=== PATIENT | female | born 1980 | race Caucasian/White ===

== ENCOUNTER 2019-10-25 08:45 | Inpatient (IN) | payer OTHER ==
[2019-10-25] MEDS ORDERED: BICITRA ORAL LIQD 30ML PO NR (11:00)
[2019-10-25] MEDS ORDERED: OXYTOCIN 20 UNIT/1000ML DRIP 20 UNITS/1,000 ML BAG IV SCH ×3 (11:00→18:00)
[2019-10-25] MEDS ORDERED: METOCLOPRAMIDE 10 MG/2 ML INJ IV NR (11:00)
[2019-10-25] MEDS ORDERED: ceFAZolin/Water 2 GM/20 ML 2 GM/20 ML SYRINGE IV NR ×2 (11:00→14:00)
[2019-10-25] MEDS ORDERED: FAMOTIDINE 20 MG/2 ML INJ IV NR (11:00)
[2019-10-25 11:28] LABS: Basophils # (Auto) 0.1 K/mm3 (0.0-0.1); Basophils % (Auto) 0.7 % (0.0-1.8); Eosinophils # (Auto) 0.1 K/mm3 (0.0-0.4); Hemoglobin 12.8 gm/dl (10.1-14.3); Lymphocytes # (Auto) 1.5 K/mm3 (1.2-5.4); Lymphocytes % (Auto) 20.9 % (13.4-35.0); Mean Corpuscular HGB Conc 34 % (30-34); Mean Corpuscular Volume 92 fl (79-97); Monocytes # (Auto) 0.5 K/mm3 (0.0-0.8); Monocytes % (Auto) 6.6 % (0.0-7.3); Platelet Count 249 K/mm3 (140-440); Red Blood Count 4.13 M/mm3 (3.65-5.03); Red Cell Distribution Width 13.7 % (13.2-15.2)
[2019-10-25] MEDS: LACTATED RINGERS 1,000 ML IV SCH ×2 (11:47→19:36)
--- NOTE | 2019-10-25 12:43 | History and Physical Report ---
History of Present Illness Date of examination: 10/25/19 Date of admission: 10/25/2019 Chief complaint: Noemy q2mins and bleeding from the vagina at38+5 wks gestation. History of present illness: Multipara. EDC 11/03/2019 was assessed with a large fetus in the office and elected for a delivery. she also wanted a tubal sterilization. Past History - Obstetrical History Expected Date of Delivery: 11/03/19 Actual Gestation: 38 Week(s) 5 Day(s) : 5 Medications and Allergies Allergies Allergy/AdvReac Type Severity Reaction Status Date / Time No Known Allergies Allergy Unverified 05/28/14 17:08 Home Medications Medication Instructions Recorded Confirmed Last Taken Type Vit-Fe Fumar-FA [ 1 each PO QDAY 05/29/14 05/29/14 05/27/14 History Vitamin] 1 HYDROcodone/APAP 5-325 [[place] 1 - 2 each PO Q4HR PRN #30 tablet 10/25/19 Unknown Rx 5/325] Active Meds: Active Medications Citric Acid/Sodium Citrate (Bicitra) 30 ml PO ONCE NR Stop: 10/25/19 16:00 Famotidine (Pepcid) 20 mg IV ONCE NR Stop: 10/25/19 16:00 Oxytocin/Sodium Chloride (Pitocin/Ns 20 Unit/1000ml Drip) 20 units in 1,000 mls @ 0 mls/hr IV TITR BRIE Lactated Ringer's (Lactated Ringers) 1,000 mls @ 2,250 mls/hr IV PREOP BRIE Stop: 10/26/19 11:27 Last Admin: 10/25/19 11:47 Dose: 2,250 mls/hr Documented by: Cefazolin Sodium (Ancef/Sterile Water 2 Gm/20 Ml) 2 gm in 20 mls @ 80 mls/hr IV PREOP NR; Protocol Stop: 10/25/19 16:00 Metoclopramide HCl (Reglan) 10 mg IV ONCE NR Stop: 10/25/19 16:00 Review of Systems All systems: negative - Vital Signs Vital signs: Vital Signs Pulse BP 60 132/87 10/25/19 09:46 10/25/19 09:46 Temp Pulse Resp BP Pulse Ox 100.3 F H 66 18 133/87 99 10/25/19 10:15 10/25/19 12:24 10/25/19 10:15 10/25/19 10:16 10/25/19 12:24 - Physical Exam Lungs: Positive: Normal air movement Abdomen: Positive: distention. Negative: tenderness - Obstetrical FHR: category 1 Uterine Contraction Pattern: Regular Results Result Diagrams: 10/25/19 11:02 Abnormal lab results 10/25/19 Range/Units 11:02 Seg Neutrophils % 70.8 H (40.0-70.0) % All other labs normal. Assessment and Plan - Patient Problems (1) Macrosomia affecting management of mother in third trimester, single gestation Current Visit: Yes Status: Acute (2) Active labor at term Current Visit: No Status: Acute (3) Insufficient care Current Visit: No Status: Acute (4) Macrosomia Current Visit: Yes Status: Acute Plan to address problem: Patient was counseled about accuracy of US estimation of weight and potential for overestimation. All risks associated with section were disclosed. All her questions were answered and she gave her consent for delivery.
[2019-10-25] MEDS ORDERED: BICITRA ORAL LIQD 30ML PO ONE (13:57)
[2019-10-25] MEDS ORDERED: LACTATED RINGERS 1,000 ML IV SCH (14:00)
--- NOTE | 2019-10-25 15:24 | Anesthesia Consultation ---
Anesthesia Consult and Med Hx Date of service: 10/25/19 - Airway Anesthetic Teeth Evaluation: Good ROM Head & Neck: Adequate Mental/Hyoid Distance: Adequate Mallampati Class: Class II Intubation Access Assessment: Good - Pulmonary Exam CTA: Yes - Cardiac Exam Cardiac Exam: RRR - Pre-Operative Health Status ASA Pre-Surgery Classification: ASA2 Proposed Anesthetic Plan: Spinal - Pulmonary Hx Asthma: No COPD: No Hx Pneumonia: No - Cardiovascular System Hx Hypertension: No - Central Nervous System Hx Seizures: No Hx Psychiatric Problems: No - Endocrine Hx Renal Disease: No Hx End Stage Renal Disease: No Hx Hypothyroidism: No Hx Hyperthyroidism: No - Hematic Hx Anemia: No Hx Sickle Cell Disease: No - Other Systems Hx Alcohol Use: No
[2019-10-25] MEDS ORDERED: PROMETHAZINE 25 MG RECT SUPP PR PRN (15:25)
[2019-10-25] MEDS ORDERED: HYDROmorphone 1 MG/1 ML INJ IV PRN ×2 (15:25)
[2019-10-25] MEDS ORDERED: ONDANSETRON 4 MG/2 ML INJ IV PRN ×2 (15:25→17:34)
[2019-10-25] MEDS ORDERED: NALOXONE 0.4 MG/1 ML INJ IV PRN ×2 (15:25→17:34)
[2019-10-25] MEDS ORDERED: PROMETHAZINE 25 MG TAB PO PRN (15:25)
--- NOTE | 2019-10-25 15:25 | Anesthesia Day of Surgery ---
Anesthesia Day of Surgery - Day of Surgery Patient Examined: Yes Patient H&P Reviewed: Yes Patient is NPO: Yes
[2019-10-25] MEDS ORDERED: GLYCOPYRROLATE 0.4 MG/2 ML INJ ONE (16:24)
[2019-10-25] MEDS ORDERED: ePHEDrine SULFATE 50 MG/1 ML INJ ONE (16:27)
[2019-10-25] MEDS ORDERED: SODIUM CHLORIDE 0.9% IRR 1,500 ML BOTTLE IR ONE (16:40)
[2019-10-25] MEDS ORDERED: WATER FOR IRRIG STERILE 1,500 ML BOTTLE IR ONE (16:40)
[2019-10-25] MEDS ORDERED: DEXMEDETOMIDINE 200 MCG/2 ML VIAL IV ONE (16:58)
[2019-10-25] MEDS ORDERED: KETOROLAC 30 MG/1 ML INJ ONE (16:58)
[2019-10-25] MEDS ORDERED: ONDANSETRON 4 MG/2 ML INJ ONE (16:58)
[2019-10-25] MEDS ORDERED: HYDROcodone/ACETAMINOPHEN 5-325 MG TAB PO PRN (17:34)
[2019-10-25] MEDS ORDERED: KETOROLAC 30 MG/1 ML INJ IV PRN (17:34)
[2019-10-25] MEDS ORDERED: LANOLIN/ZINC/DIMETHICONE (LANSINOH) 7 GM TP PRN (17:34)
[2019-10-25] MEDS ORDERED: WITCH HAZEL/ GLYCERIN PAD TP PRN (17:34)
[2019-10-25] MEDS ORDERED: MORPHINE 4 MG/1 ML INJ IV PRN (17:34)
--- NOTE | 2019-10-25 17:42 | Operative Report ---
Operative Report Operative Report: Date of surgery: 10/25/2019 Preoperative diagnoses: Term , gestational diabetes and macrosomia Postoperative diagnoses: The same. Operation: Lower segment transverse delivery Surgeon:Lion Plaza MD Manager Safe: Missy Beltran CRNA Anesthesia: Spinal block Estimated blood loss: 1000 mL Complications: None Findings: There was a live baby boy with a loose nuchal cord in February of meconium-stained amniotic fluid. Baby was in cephalic presentation. weight 8 lbs. 14 oz. with Apgars 8/9. Both ovaries and fallopian tubes were grossly normal. The uterus was an unremarkable gravid structure. Procedure in detail: The patient was taken to the operating room and given a spinal block. Patient was placed in the straight supine position and a Coronel catheter was inserted. The patient was prepped in the abdomen. The drapes were placed. A timeout was done. With the go ahead from the solid waste landfill technician, a Pfannenstiel incision was made. This incision was carried across the subcutaneous layer to the fascia which was also divided transversely. The recti abdominis muscle flaps were stripped from the fascia using a combination of blunt and sharp dissections. The muscles were in the midline to gain access to the anterior parietal peritoneum whi ch was divided after excluding any underlying viscera. The access to the peritoneal cavity was then widened by manual stretching. The bladder blade was applied. The utero vesicle peritoneal flap was divided transversely allowing the bladder to be displaced caudally. The uterine incision was placed in the lower segment transversely. The uterine incision was carried to the decidual layer. The uterine incision was extended on both sides using the bandage scissors. The amniotic sac was ruptured with clear fluid. The head was lifted out of the false maternal pelvis and delivered through the incision using fundal pressure. The airways were bulb suctioned beginning with the mouth. Continuing fundal pressure combined with traction on the mandibular processes of the jaw delivered the rest of the baby. The umbilical cord was double clamped and divided. The baby was carefully transferred to the pediatric team. The placenta was manually removed from the uterine cavity. The uterine cavity was explored and was empty of any placental remnants. The uterine incision was repaired in 2 layers with #1 Vicryl. The surgical line on the uterus was hemostatic. Blood and clots were cleared from the peritoneal cavity. The anterior parietal peritoneum was repaired with #1 Vicryl. The fascia was repaired with #1 Vicryl. The subcutaneous layer was made hemostatic using the B ovie before the skin was closed subcuticularly with 4-0 Vicryl. There were no complications. The estimated blood loss was 1000 mL. All sponges and instrument counts were correct. Patient was safely transferred to the recovery room.
--- NOTE | 2019-10-25 17:48 | Post Anesthesia Evaluation ---
- Post Anesthesia Evaluation Patient Participated: Yes Airway Patent: Yes Stable Respiratory Function: Yes Nausea/Vomiting: Yes Temp > 96.8F: Yes Pain Manageable: Yes Adequeate Hydration: Yes Anesthesia Complications: No Block Receding Appropriately: Yes Patient on Ventilator: No
[2019-10-25] MEDS: ceFAZolin/NS 1 GM/50 ML 1 GM/50 ML BAG IV SCH (22:30)
[2019-10-25] MEDS: D5W/LACTATED RINGERS 1,000 ML IV SCH (23:29)
[2019-10-26 05:24] LABS: Hemoglobin 9.7 gm/dl (10.1-14.3)
[2019-10-26] MEDS: ceFAZolin/NS 1 GM/50 ML 1 GM/50 ML BAG IV SCH (05:58)
[2019-10-26] MEDS: D5W/LACTATED RINGERS 1,000 ML IV SCH (06:00)
[2019-10-26] MEDS ORDERED: FERROUS SULFATE 325 MG TAB PO SCH (10:00)
[2019-10-26] MEDS ORDERED: HYDROcodone/ACETAMINOPHEN 5-325 MG TAB PO PRN ×2 (11:03→17:48)
[2019-10-26] MEDS: PRENATAL VIT27-FE FUMARATE-FOLIC ACID VIT TAB PO SCH (11:22)
[2019-10-26] MEDS: HYDROcodone/ACETAMINOPHEN 5-325 MG TAB PO PRN ×2 (11:22→17:52)
[2019-10-26] MEDS: FERROUS SULFATE 325 MG TAB PO SCH ×2 (11:22→22:48)
--- NOTE | 2019-10-26 12:13 | Progress Note ---
Assessment and Plan A: POD #1 Asymptomatic Anemia GDM A1 P: Follow Routine PostOp Orders FeSO4 325mg PO BID Encouraged increased ambulation Subjective - Subjective Date of service: 10/26/19 Patient reports: appetite normal, voiding normally, pain well controlled, ambulating normally : doing well, bottle feeding (and ) Objective - Vital Signs Latest vital signs: Vital Signs Temp Pulse Resp BP BP Pulse Ox 10/26/19 08:16 98.1 F 70 18 109/73 10/26/19 04:00 98.7 F 77 18 103/67 10/26/19 00:00 98.6 F 74 16 122/69 10/25/19 20:04 62 106/62 100 10/25/19 18:45 97.8 F 64 15 112/59 100 10/25/19 18:30 60 11 L 105/61 100 10/25/19 18:15 64 19 92/49 99 10/25/19 18:05 62 14 99/61 99 10/25/19 18:00 60 13 98/58 99 10/25/19 17:55 97.6 F 64 13 105/57 99 10/25/19 15:59 72 99 10/25/19 15:54 67 99 10/25/19 15:49 64 99 10/25/19 15:44 70 97 10/25/19 15:39 67 96 10/25/19 15:36 65 91 10/25/19 15:34 65 100 10/25/19 15:30 65 87 10/25/19 15:29 63 100 10/25/19 15:24 70 98 10/25/19 15:19 69 98 10/25/19 15:14 77 96 10/25/19 15:09 72 97 10/25/19 15:04 63 100 10/25/19 14:59 63 100 10/25/19 14:54 71 100 10/25/19 14:49 63 99 10/25/19 14:44 66 100 10/25/19 14:39 71 100 10/25/19 14:34 68 98 10/25/19 14:29 71 100 10/25/19 14:24 66 100 10/25/19 14:19 77 100 10/25/19 14:14 64 100 10/25/19 14:09 72 98 10/25/19 14:04 64 98 10/25/19 13:59 69 100 10/25/19 13:54 65 98 10/25/19 13:49 68 99 10/25/19 13:44 71 98 10/25/19 13:39 66 96 10/25/19 13:34 78 100 10/25/19 13:29 63 97 10/25/19 13:24 77 98 10/25/19 13:19 68 100 10/25/19 13:14 67 100 10/25/19 13:09 70 97 10/25/19 13:04 67 98 10/25/19 12:59 67 100 10/25/19 12:54 62 100 10/25/19 12:49 70 100 10/25/19 12:44 62 100 10/25/19 12:39 66 100 10/25/19 12:34 76 92 10/25/19 12:29 66 100 10/25/19 12:24 66 99 10/25/19 12:19 74 98 10/25/19 12:14 63 99 10/25/19 12:09 74 98 Intake and Output 10/25/19 10/26/19 10/26/19 22:59 06:59 14:59 Intake Total 2400 864.583 480 Output Total 200 600 Balance 2200 264.583 480 Intake: IV 2400 864.583 ANCEF/NS 1 GM/50 ML 1 gm 50 In 50 ml @ 100 mls/hr IV Q8H BRIE Rx#:[id number] D5lr 1,000 ml @ 125 mls/ 814.583 hr IV DIRECT BRIE Rx#: [id number] Oral 480 Output: Urine 200 600 Indwelling Catheter 600 Uretheral (Coronel) 100 Other: Total, Intake Amount 480 Total, Output Amount 600 # Voids Indwelling Catheter 1 Estimated Blood Loss 1,000 - Exam Breasts: Present: normal Cardiovascular: Present: Regular rate Lungs: Present: Clear to auscultation, Normal air movement Abdomen: Present: normal appearance, soft, normal bowel sounds Uterus: Present: normal, firm, fundal height below umbilicus Extremities: Present: normal Incision: Present: normal, intact, dressed - Labs Labs: Abnormal lab results 10/26/19 Range/Units 05:01 Hgb 9.7 L D (10.1-14.3) gm/dl Hct 29.0 L D (30.3-42.9) %
[2019-10-26] MEDS: IBUPROFEN 800 MG TAB PO PRN (22:48)
[2019-10-27] MEDS: HYDROcodone/ACETAMINOPHEN 5-325 MG TAB PO PRN ×2 (01:28→10:16)
[2019-10-27] MEDS: IBUPROFEN 800 MG TAB PO PRN (06:03)
[2019-10-27] MEDS: PRENATAL VIT27-FE FUMARATE-FOLIC ACID VIT TAB PO SCH (09:43)
[2019-10-27] MEDS: FERROUS SULFATE 325 MG TAB PO SCH (09:43)
--- NOTE | 2019-10-27 15:57 | Progress Note ---
Assessment and Plan A: POD#2 s/p Repeat c/s Asymptomatic Anemia GDM A1 P: Follow Routine PostOp Orders FeSO4 325mg PO BID Encouraged increased ambulation Discharge home this Pm pending peds Subjective - Subjective Date of service: 10/27/19 Principal diagnosis: POD#2 s/p repeat c/s Interval history: See H&P and delivery note Patient reports: appetite normal, voiding normally, pain well controlled, flatus, ambulating normally : doing well, other (breast/bottle) Objective - Vital Signs Latest vital signs: Vital Signs Temp Pulse Resp BP BP Pulse Ox 10/27/19 08:56 98.8 F 75 16 115/70 100 10/27/19 07:03 18 10/27/19 06:03 18 10/27/19 02:28 18 10/27/19 01:28 18 10/27/19 00:46 98.1 F 77 24 111/59 98 10/26/19 23:48 18 10/26/19 22:48 18 10/26/19 16:51 98.0 F 75 18 120/73 Intake and Output 10/26/19 10/27/19 10/27/19 23:59 07:59 15:59 Intake Total 480 480 Balance 480 480 Intake: Oral 480 480 Other: Total, Intake Amount 480 480 # Voids Indwelling Catheter 2 - Exam Breasts: Present: normal, Cardiovascular: Present: Regular rate, Normal S1, Normal S2, No murmurs Lungs: Present: Clear to auscultation, Normal air movement Abdomen: Present: normal appearance, soft, tenderness (as expected post-op), n ormal bowel sounds. Absent: distention Vulva: both: normal Uterus: Present: firm, fundal height at umbilicus Extremities: Present: normal Deep Tendon Reflex Grade: Normal +2 Incision: Present: normal, dry, intact, dressed (CDI)
--- NOTE | 2019-10-27 15:59 | Discharge Summary ---
Providers - Providers Date of Admission: 10/25/19 08:46 Date of discharge: 10/27/19 Attending physician: JANE ROJAS MD Primary care physician: JANE ROJAS MD Hospitalization Reason for admission: IUP at term Delivery: Procedure: repeat low transverse Procedure details: See H&P and operative note Incision: normal, dry, intact (CDI) Other procedures: none complications: none Discharge diagnosis: IUP at term delivered baby: male Condition at discharge: Good Disposition: DC-01 TO HOME OR SELFCARE Plan - Discharge Medications Prescriptions: HYDROcodone/APAP 5-325 [[place] 5/325] 1 - 2 each PO Q4HR PRN #30 tablet PRN Reason: Pain - Provider Discharge Summary Activity: routine, no sex for 6 weeks, no heavy lifting 4 weeks, no strenuous exercise Diet: routine Instructions: routine Additional instructions: [] Smoking cessation referral if applicable(refer to patient education folder for contact #) [] Refer to [facility]'s [facility] Booklet Call your doctor immediately for: * Fever > 100.5 * Heavy vaginal bleeding ( >1 pad per hour) * Severe persistent headache * Shortness of breath * Reddened, hot, painful area to leg or breast * Drainage or odor from incision. * Keep incision clean and dry at all times and follow doctor's instructions regarding bathing/showering - Follow up plan Follow up: JANE ROJAS MD [Primary Care Provider] - 7 Days Forms: [facility] Discharge Summary
[2019-10-27 17:12] VITALS: BP 124/80
== END 2019-10-27 18:10 | disposition home or self-care (01) | DRG 788 ==
LOC: TRG 08:45 → APU 08:46 → TRG 08:47 → OB 21:14
PROVIDERS: ADMIT Obstetrics & Gynecology; ATTEND Obstetrics & Gynecology
PROC: 10D00Z1 Extraction of Products of Conception, Low, Open Approach (ICD-10-PCS; principal; 2019-10-25)
DX: O34.211 Maternal care for low transverse scar from previous cesarean delivery (principal); O36.63X0 Maternal care for excessive fetal growth, third trimester, not applicable or unspecified; O24.429 Gestational diabetes mellitus in childbirth, unspecified control; O99.02 Anemia complicating childbirth; Z3A.38 38 weeks gestation of pregnancy; Z37.0 Single live birth; Z79.899 Other long term (current) drug therapy
CPT/HCPCS: 36415; 85014; 85018; 85025; 86850; 86900; 86901; G0378; J0690; J1885; J2405; J2590; J2765; J3490; J7120; J7121